=== PATIENT | female | born 1945 | race Caucasian/White ===

== ENCOUNTER 2023-11-13 22:48 | Inpatient (IN) | payer MEDICARE, BC ==
[~2023-11-13] VITALS: Ht 160 cm; Wt 70.3 kg
[2023-11-13 22:08] VITALS: BP 137/61; PULSE 77; RESP 18; TEMP 36.8072
[~2023-11-13 22:48] MED LIST: AMLO5TAB4 PO; ASPI-1406 PO; CLOP-31 PO; FENO145T25 PO; GABA-532 PO; LEVO50CA4; LOSA50TA41 PO
[2023-11-13] MEDS ORDERED: HYDRALAZINE HCL 25MG TABLET PO PRN (23:30)
[2023-11-14] MEDS: KETOROLAC 10MG TABLET PO PRN (00:26)
[2023-11-14] MEDS: ACETAMINOPHEN 325MG TABLET PO PRN (02:37)
[2023-11-14] MEDS: KETOROLAC 15MG/ML VIAL IV PRN (05:53)
[2023-11-14] MEDS: LEVOTHYROXINE SODIUM 50MCG TABLET PO SCH (06:08)
[2023-11-14 07:38] LABS: CHLORIDE 102 mEq/L (98-107); POTASSIUM 3.7 mEq/L (3.5-5.1); SODIUM 131 mEq/L (136-145)
[2023-11-14 07:39] LABS: CALCIUM 9.5 mg/dL (8.7-10.4); CARBON DIOXIDE 21 mEq/L (21-32)
[2023-11-14 07:44] LABS: CREATININE 0.8 mg/dL (0.6-1.0); GLUCOSE 97 mg/dL (70-105); UREA NITROGEN BLOOD 35 mg/dL (9-23)
[2023-11-14 07:46] LABS: ALANINE AMINOTRANSFERASE 58 IU/L (10-49); ALBUMIN 3.8 g/dL (3.2-4.8); ASPARTATE AMINOTRANSFERASE 89 IU/L (<34); BILIRUBIN TOTAL 1.1 mg/dL (0.1-1.0)
[2023-11-14 07:47] LABS: PROTEIN TOTAL 5.9 g/dL (6.0-8.3)
[2023-11-14 07:50] LABS: BASOPHILS % 1.5 % (0.0-2.0); EOSINOPHILS % 2.8 % (0.0-5.0); HEMATOCRIT. 37.8 % (36.0-48.0); HEMOGLOBIN. 12.8 g/dL (12.0-16.0); MEAN CORPUSCULAR HEMOGLOBIN 32.8 pg (28.0-32.0); MEAN CORPUSCULAR HGB CONC 33.9 g/dL (31.0-37.0); MEAN CORPUSCULAR VOLUME 96.7 fL (81.0-99.0); MEAN PLATELET VOLUME 9.9 fl (7.4-10.4); MONOCYTES % 14.1 % (2.0-8.0); NEUTROPHILS % 61.6 % (40.0-76.0); PLATELET 266 x1000/uL (130-400); RED BLOOD CELL COUNT 3.91 mill/uL (4.2-5.4); RED CELL DISTRIBUTION WIDTH 12.8 % (11.6-14.6); WHITE BLOOD COUNT 5.1 x1000/uL (4.5-11.0)
[2023-11-14 08:00] VITALS: BP 140/90; PULSE 80; RESP 18; TEMP 36.114; O2SAT 95
[2023-11-14] MEDS: ASPIRIN 81MG TABLET PO SCH (09:46)
[2023-11-14] MEDS: LOSARTAN 50 MG TABLET PO SCH (09:46)
[2023-11-14] MEDS: AMLODIPINE 5MG TABLET PO SCH (09:47)
[2023-11-14] MEDS: FENOFIBRATE NANOCRYSTALLIZED 145MG TABLET PO SCH (09:47)
[2023-11-14] MEDS: CLOPIDOGREL 75MG TABLET PO SCH (09:47)
[2023-11-14] MEDS: CIPROFLOXACIN 0.3% OPHTH SOLN 2.5ML BOTHEYE SCH (09:48)
[2023-11-14] MEDS: ENOXAPARIN 40MG/0.4ML SYR SUBCUT SCH (16:02)
[2023-11-14 20:00] VITALS: BP 124/55; PULSE 81; RESP 18; TEMP 36.55848; O2SAT 95
[2023-11-14] MEDS: MELATONIN 3MG TABLET PO SCH (20:57)
[2023-11-15 08:00] VITALS: BP 132/88; PULSE 81; RESP 18; TEMP 36.6696; O2SAT 98
[2023-11-15 20:00] VITALS: BP 126/53; PULSE 79; RESP 18; TEMP 36.28068; O2SAT 98
[2023-11-16] MEDS: KETOROLAC 15MG/ML VIAL IM NR (04:23)
[2023-11-16 08:00] VITALS: BP 152/69; PULSE 79; RESP 19; TEMP 36.44736; O2SAT 98
[2023-11-16] MEDS ORDERED: LOSARTAN 25 MG TABLET PO SCH (09:00)
[2023-11-16] MEDS: LOSARTAN 25 MG TABLET PO SCH (09:18)
[2023-11-16] MEDS: HYDROCODONE/ACETAMINOPHEN 5/325MG TABLET PO PRN (13:54)
[2023-11-16] MEDS: LIDOCAINE 5% PATCH TOP SCH (13:55)
[2023-11-16] MEDS ORDERED: NALOXONE HCL 0.4MG/ML VIAL IV PRN (14:30)
[2023-11-16 20:00] VITALS: BP 132/52; PULSE 78; RESP 18; TEMP 36.78072; O2SAT 98
[2023-11-17 08:00] VITALS: BP 138/65; PULSE 73; RESP 20; TEMP 36.61404; O2SAT 95
[2023-11-17] MEDS: TIZANIDINE HCL 2MG TABLET PO SCH (17:45)
[2023-11-17 20:00] VITALS: BP 99/61; PULSE 86; RESP 19; TEMP 36.16956; O2SAT 98
[2023-11-17 22:35] VITALS: BP 122/54; PULSE 72
[2023-11-18] MEDS: LACTULOSE 20G/30ML UDC PO NR (06:31)
[2023-11-18 08:00] VITALS: BP 122/52; PULSE 77; RESP 19; TEMP 37.11408; O2SAT 100
[2023-11-18 20:00] VITALS: BP 100/59; PULSE 86; RESP 18; TEMP 37.39188; O2SAT 92
[2023-11-18] MEDS: NA PHOS,M-B/NA PHOS,DI-BA ENEMA 118ML PR PRN (20:45)
[2023-11-19 07:42] LABS: BASOPHILS % 1.2 % (0.0-2.0); DIFFERENTIAL COMMENT 0; EOSINOPHILS % 2.1 % (0.0-5.0); HEMATOCRIT. 36.9 % (36.0-48.0); HEMOGLOBIN. 12.1 g/dL (12.0-16.0); LYMPHOCYTES % 18.4 % (20.0-50.0); MEAN CORPUSCULAR HEMOGLOBIN 32.1 pg (28.0-32.0); MEAN CORPUSCULAR HGB CONC 32.9 g/dL (31.0-37.0); MEAN CORPUSCULAR VOLUME 97.3 fL (81.0-99.0); MEAN PLATELET VOLUME 10.1 fl (7.4-10.4); MONOCYTES % 11.5 % (2.0-8.0); NEUTROPHILS % 66.8 % (40.0-76.0); PLATELET 330 x1000/uL (130-400); RED BLOOD CELL COUNT 3.79 mill/uL (4.2-5.4); RED CELL DISTRIBUTION WIDTH 12.6 % (11.6-14.6); WHITE BLOOD COUNT 6.6 x1000/uL (4.5-11.0)
[2023-11-19 07:46] LABS: CARBON DIOXIDE 19 mEq/L (21-32); CHLORIDE 102 mEq/L (98-107); POTASSIUM 4.2 mEq/L (3.5-5.1); SODIUM 128 mEq/L (136-145)
[2023-11-19 07:47] LABS: CALCIUM 9.4 mg/dL (8.7-10.4)
[2023-11-19 07:52] LABS: CREATININE 0.8 mg/dL (0.6-1.0); GLUCOSE 92 mg/dL (70-105); UREA NITROGEN BLOOD 27 mg/dL (9-23)
[2023-11-19 08:00] VITALS: BP 125/59; PULSE 77; RESP 18; TEMP 36.114; O2SAT 98
[2023-11-19 20:00] VITALS: BP 128/59; PULSE 79; RESP 18; TEMP 36.33624; O2SAT 97
[2023-11-20 08:00] VITALS: BP 142/60; PULSE 84; RESP 18; TEMP 36.22512; O2SAT 96
[2023-11-20 20:00] VITALS: BP 126/60; PULSE 80; RESP 18; TEMP 36.55848; O2SAT 94
[2023-11-20] MEDS: TIZANIDINE HCL 2MG TABLET PO SCH (21:23)
[2023-11-21 08:00] VITALS: BP 127/51; PULSE 70; RESP 18; TEMP 36.28068; O2SAT 97
[2023-11-21 20:00] VITALS: BP 126/57; PULSE 86; RESP 18; TEMP 36.22512; O2SAT 95
[2023-11-22 08:00] VITALS: BP 132/53; PULSE 71; RESP 17; TEMP 36.22512; O2SAT 98
[2023-11-22] MEDS ORDERED: NALOXONE HCL 0.4MG/ML VIAL IV PRN (09:30)
[2023-11-22 20:00] VITALS: BP 122/53; PULSE 89; RESP 17; TEMP 36.22512; O2SAT 96
[2023-11-22] MEDS: HYDROCODONE/ACETAMINOPHEN 5/325MG TABLET PO PRN (21:09)
[2023-11-23] MEDS: HYDROCODONE/ACETAMINOPHEN 5/325MG TABLET PO NR (04:00)
[2023-11-23] MEDS ORDERED: BACLOFEN 10MG TABLET PO NR (05:30)
[2023-11-23] MEDS: TIZANIDINE HCL 2MG TABLET PO NR (06:04)
[2023-11-23] MEDS: KETOROLAC 30MG/ML VIAL IV NR (06:31)
[2023-11-23] MEDS: KETOROLAC 30MG/ML VIAL IM NR (06:48)
[2023-11-23 07:45] LABS: BASOPHILS % 2.4 % (0.0-2.0); EOSINOPHILS % 1.6 % (0.0-5.0); HEMATOCRIT. 36.9 % (36.0-48.0); HEMOGLOBIN. 12.5 g/dL (12.0-16.0); LYMPHOCYTES % 25.4 % (20.0-50.0); MEAN CORPUSCULAR HEMOGLOBIN 32.6 pg (28.0-32.0); MEAN CORPUSCULAR HGB CONC 33.8 g/dL (31.0-37.0); MEAN CORPUSCULAR VOLUME 96.5 fL (81.0-99.0); MEAN PLATELET VOLUME 9.9 fl (7.4-10.4); MONOCYTES % 14.8 % (2.0-8.0); NEUTROPHILS % 55.8 % (40.0-76.0); PLATELET 408 x1000/uL (130-400); RED BLOOD CELL COUNT 3.82 mill/uL (4.2-5.4); RED CELL DISTRIBUTION WIDTH 12.5 % (11.6-14.6); WHITE BLOOD COUNT 4.9 x1000/uL (4.5-11.0)
[2023-11-23 07:58] LABS: CHLORIDE 100 mEq/L (98-107); POTASSIUM 3.6 mEq/L (3.5-5.1); SODIUM 130 mEq/L (136-145)
[2023-11-23 07:59] LABS: CALCIUM 10.1 mg/dL (8.7-10.4); CARBON DIOXIDE 21 mEq/L (21-32)
[2023-11-23 08:00] VITALS: BP 103/52; PULSE 66; RESP 19; TEMP 37.00296; O2SAT 98
[2023-11-23 08:04] LABS: CREATININE 0.7 mg/dL (0.6-1.0); GLUCOSE 89 mg/dL (70-105); UREA NITROGEN BLOOD 25 mg/dL (9-23)
[2023-11-23] MEDS ORDERED: LEVO50TA8 PO (12:41)
[2023-11-23 20:00] VITALS: BP 118/56; PULSE 85; RESP 17; TEMP 36.114; O2SAT 96
[2023-11-24 08:00] VITALS: BP 117/56; PULSE 71; RESP 18; TEMP 36.28068; O2SAT 100
[2023-11-24 20:00] VITALS: BP 143/56; PULSE 91; RESP 18; TEMP 35.78064; O2SAT 95
[2023-11-25] MEDS: LACTULOSE 20G/30ML UDC PO SCH (06:21)
[2023-11-25 08:00] VITALS: BP 123/55; PULSE 71; RESP 18; TEMP 36.44736; O2SAT 100
[2023-11-25] MEDS: MEGESTROL ACETATE 400 MG/10 ML UDC PO SCH (09:00)
[2023-11-25 15:03] LABS: CLARITY URINE CLEAR (CLEAR); COLOR URINE YELLOW (YELLOW); GLUCOSE URINE NEGATIVE (NEGATIVE); KETONES URINE NEGATIVE (NEGATIVE); LEUKOCYTE ESTERASE URINE NEGATIVE (NEGATIVE); NITRITE URINE NEGATIVE (NEGATIVE); OCCULT BLOOD URINE NEGATIVE (NEGATIVE); PROTEIN URINE NEGATIVE (NEGATIVE)
[2023-11-25 20:00] VITALS: BP 135/65; PULSE 90; RESP 18; TEMP 36.55848; O2SAT 96
[2023-11-25] MEDS: NA PHOS,M-B/NA PHOS,DI-BA ENEMA 118ML PR NR (20:00)
[2023-11-26 06:21] LABS: BASOPHILS % 2.1 % (0.0-2.0); CALCIUM 10.4 mg/dL (8.7-10.4); CARBON DIOXIDE 22 mEq/L (21-32); CHLORIDE 100 mEq/L (98-107); EOSINOPHILS % 2.3 % (0.0-5.0); HEMATOCRIT. 36.8 % (36.0-48.0); HEMOGLOBIN. 12.2 g/dL (12.0-16.0); MEAN CORPUSCULAR HGB CONC 33.2 g/dL (31.0-37.0); MEAN CORPUSCULAR VOLUME 96.5 fL (81.0-99.0); MEAN PLATELET VOLUME 9.5 fl (7.4-10.4); NEUTROPHILS % 59.6 % (40.0-76.0); PLATELET 382 x1000/uL (130-400); POTASSIUM 3.8 mEq/L (3.5-5.1); RED BLOOD CELL COUNT 3.81 mill/uL (4.2-5.4); RED CELL DISTRIBUTION WIDTH 12.8 % (11.6-14.6); SODIUM 130 mEq/L (136-145); WHITE BLOOD COUNT 6.1 x1000/uL (4.5-11.0)
[2023-11-26 06:27] LABS: CREATININE 0.7 mg/dL (0.6-1.0); GLUCOSE 97 mg/dL (70-105); UREA NITROGEN BLOOD 23 mg/dL (9-23)
[2023-11-26 08:00] VITALS: BP 160/68; PULSE 78; RESP 18; TEMP 36.28068; O2SAT 100
[2023-11-26 20:00] VITALS: BP 139/61; PULSE 88; RESP 18; TEMP 36.28068; O2SAT 97
[2023-11-27 08:00] VITALS: BP 147/67; PULSE 80; RESP 18; TEMP 36.22512; O2SAT 97
[2023-11-27] MEDS: HYDROCODONE/ACETAMINOPHEN 5/325MG TABLET PO PRN (13:36)
[2023-11-27] MEDS ORDERED: NALOXONE HCL 0.4MG/ML VIAL IV PRN (15:30)
[2023-11-27] MEDS: HYDROCODONE/ACETAMINOPHEN 5/325MG TABLET PO SCH (19:55)
[2023-11-27 20:00] VITALS: BP 136/59; PULSE 90; RESP 18; TEMP 36.114; O2SAT 97
[2023-11-28 08:00] VITALS: BP 140/63; PULSE 86; RESP 18; TEMP 36.3918; O2SAT 98
[2023-11-28] MEDS: HYDROCODONE/ACETAMINOPHEN 5/325MG TABLET PO SCH (12:53)
[2023-11-28 20:00] VITALS: BP 141/54; PULSE 69; RESP 19; TEMP 36.16956; O2SAT 95
[2023-11-29 06:14] LABS: BASOPHILS % 2.6 % (0.0-2.0); EOSINOPHILS % 2.5 % (0.0-5.0); HEMATOCRIT. 38.9 % (36.0-48.0); HEMOGLOBIN. 12.9 g/dL (12.0-16.0); LYMPHOCYTES % 33.5 % (20.0-50.0); MEAN CORPUSCULAR HEMOGLOBIN 31.8 pg (28.0-32.0); MEAN CORPUSCULAR HGB CONC 33.2 g/dL (31.0-37.0); MEAN CORPUSCULAR VOLUME 95.6 fL (81.0-99.0); MEAN PLATELET VOLUME 9.6 fl (7.4-10.4); MONOCYTES % 11.3 % (2.0-8.0); NEUTROPHILS % 50.1 % (40.0-76.0); PLATELET 380 x1000/uL (130-400); RED BLOOD CELL COUNT 4.07 mill/uL (4.2-5.4); RED CELL DISTRIBUTION WIDTH 12.7 % (11.6-14.6); WHITE BLOOD COUNT 5.1 x1000/uL (4.5-11.0)
[2023-11-29 06:21] LABS: CHLORIDE 100 mEq/L (98-107); POTASSIUM 3.9 mEq/L (3.5-5.1); SODIUM 128 mEq/L (136-145)
[2023-11-29 06:22] LABS: CALCIUM 10.4 mg/dL (8.7-10.4); CARBON DIOXIDE 21 mEq/L (21-32)
[2023-11-29 06:27] LABS: CREATININE 0.7 mg/dL (0.6-1.0); GLUCOSE 87 mg/dL (70-105); UREA NITROGEN BLOOD 20 mg/dL (9-23)
[2023-11-29] MEDS: HYDROCODONE/ACETAMINOPHEN 5/325MG TABLET PO ONE (06:27)
[2023-11-29 08:00] VITALS: BP 150/63; PULSE 79; RESP 17; TEMP 35.8362; O2SAT 98
[2023-11-30 08:00] VITALS: BP 108/68; PULSE 74; RESP 19; TEMP 36.83628; O2SAT 98
[2023-11-30] MEDS: HYDROCODONE/ACETAMINOPHEN 5/325MG TABLET PO PRN (09:37)
[2023-11-30 20:00] VITALS: BP 127/61; PULSE 92; RESP 18; TEMP 36.16956; O2SAT 98
[2023-12-01 08:00] VITALS: BP 137/60; PULSE 71; RESP 19; TEMP 36.78072; O2SAT 98
[2023-12-01 20:00] VITALS: BP 124/61; PULSE 86; RESP 17; TEMP 36.55848; O2SAT 99
[2023-12-02 08:00] VITALS: BP 123/63; PULSE 70; RESP 18; TEMP 36.50292; O2SAT 96
[2023-12-02 13:11] LABS: AMPHETAMINE SCREEN Negative ng/mL (Cutoff:50); BARBITURATE SCREEN Negative ug/mL (Cutoff:0.1); BENZODIAZEPINE SCREEN Negative ng/mL (Cutoff:20); CANNABINOID SCREEN Negative ng/mL (Cutoff:5); PHENCYCLIDINE SCREEN Negative ng/mL (Cutoff:8)
[2023-12-02 20:00] VITALS: BP 132/57; PULSE 89; RESP 18; TEMP 35.78064; O2SAT 98
[2023-12-03] MEDS: HYDROCODONE/ACETAMINOPHEN 5/325MG TABLET PO PRN ×2 (04:00→07:53)
[2023-12-03 07:12] LABS: CARBON DIOXIDE 21 mEq/L (21-32); CHLORIDE 104 mEq/L (98-107); POTASSIUM 3.9 mEq/L (3.5-5.1); SODIUM 132 mEq/L (136-145)
[2023-12-03 07:13] LABS: CALCIUM 10.9 mg/dL (8.7-10.4)
[2023-12-03 07:18] LABS: CREATININE 0.9 mg/dL (0.6-1.0); GLUCOSE 87 mg/dL (70-105); UREA NITROGEN BLOOD 21 mg/dL (9-23)
[2023-12-03] MEDS ORDERED: NALOXONE HCL 0.4MG/ML VIAL IV PRN (07:45)
[2023-12-03 08:00] VITALS: BP 152/65; PULSE 75; RESP 20; TEMP 36.28068; O2SAT 98
[2023-12-03 08:25] LABS: EOSINOPHILS % 2.6 % (0.0-5.0); HEMATOCRIT. 35.3 % (36.0-48.0); HEMOGLOBIN. 11.7 g/dL (12.0-16.0); LYMPHOCYTES % 24.7 % (20.0-50.0); MEAN CORPUSCULAR HEMOGLOBIN 32.4 pg (28.0-32.0); MEAN CORPUSCULAR VOLUME 98.1 fL (81.0-99.0); MONOCYTES % 11.7 % (2.0-8.0); PLATELET 274 x1000/uL (130-400); WHITE BLOOD COUNT 4.8 x1000/uL (4.5-11.0)
[2023-12-03 20:00] VITALS: BP 121/57; PULSE 89; RESP 18; TEMP 36.3918; O2SAT 96
[2023-12-04] MEDS: HYDROCODONE/ACETAMINOPHEN 5/325MG TABLET PO SCH (07:21)
[2023-12-04 08:00] VITALS: BP 144/63; PULSE 74; RESP 18; TEMP 36.89184; O2SAT 98
[2023-12-04 20:00] VITALS: BP 143/83; PULSE 76; RESP 18; TEMP 37.61412; O2SAT 96
[2023-12-05 07:59] VITALS: BP 138/59; PULSE 73; RESP 20; TEMP 36.3918; O2SAT 97
[2023-12-05 10:08] LABS: ETHANOL URINE Negative % (Cutoff=0.020)
[2023-12-05 20:00] VITALS: BP 137/80; PULSE 77; RESP 18; TEMP 36.50292; O2SAT 96
[2023-12-06 07:41] LABS: CHLORIDE 104 mEq/L (98-107); POTASSIUM 3.8 mEq/L (3.5-5.1); SODIUM 134 mEq/L (136-145)
[2023-12-06 07:42] LABS: CALCIUM 10.7 mg/dL (8.7-10.4); CARBON DIOXIDE 24 mEq/L (21-32)
[2023-12-06 07:47] LABS: CREATININE 0.9 mg/dL (0.6-1.0); GLUCOSE 82 mg/dL (70-105); UREA NITROGEN BLOOD 24 mg/dL (9-23)
[2023-12-06 07:50] LABS: BASOPHILS % 0.6 % (0.0-2.0); EOSINOPHILS % 2.2 % (0.0-5.0); HEMATOCRIT. 39.2 % (36.0-48.0); LYMPHOCYTES % 22.8 % (20.0-50.0); MEAN CORPUSCULAR HGB CONC 33.1 g/dL (31.0-37.0); MEAN CORPUSCULAR VOLUME 96.9 fL (81.0-99.0); MEAN PLATELET VOLUME 9.8 fl (7.4-10.4); MONOCYTES % 6.9 % (2.0-8.0); NEUTROPHILS % 67.5 % (40.0-76.0); PLATELET 296 x1000/uL (130-400); RED BLOOD CELL COUNT 4.05 mill/uL (4.2-5.4); RED CELL DISTRIBUTION WIDTH 12.9 % (11.6-14.6); WHITE BLOOD COUNT 6.2 x1000/uL (4.5-11.0)
[2023-12-06 08:00] VITALS: BP 100/70; PULSE 83; RESP 17; TEMP 36.3918; TEMP 36.39180; O2SAT 97
[2023-12-06 11:38] VITALS: BP 100/70; PULSE 83; TEMP 97.5; O2SAT 97
[2023-12-12 08:13] LABS: DIHYDROCODEINE UNCONJUGATED Negative (.); OPIATES SCREEN ++POSITIVE++ ng/mL (Cutoff:5); OXYCODON UNCONJUGATED Negative (.); OXYCODONE SCREEN Negative ng/mL (Cutoff:5); OXYCODONES CONFIRMATION Negative (.); OXYMORPHONE UNCONJUGATED Negative (.)
== END 2023-12-06 16:09 | disposition home health service (06) | DRG 65 ==
PROVIDERS: ADMIT Psychiatry & Neurology Neurology; ATTEND Hospitalist
DX: I63.29 Cerebral infarction due to unspecified occlusion or stenosis of other precerebral arteries (principal); E87.1 Hypo-osmolality and hyponatremia; I69.854 Hemiplegia and hemiparesis following other cerebrovascular disease affecting left non-dominant side; I45.2 Bifascicular block; M48.54XA Collapsed vertebra, not elsewhere classified, thoracic region, initial encounter for fracture; E03.9 Hypothyroidism, unspecified; E78.5 Hyperlipidemia, unspecified; F39 Unspecified mood [affective] disorder; F41.9 Anxiety disorder, unspecified; F51.04 Psychophysiologic insomnia; G62.9 Polyneuropathy, unspecified; M48.02 Spinal stenosis, cervical region; R29.6 Repeated falls; R29.810 Facial weakness; Z96.641 Presence of right artificial hip joint; I44.0 Atrioventricular block, first degree; M16.11 Unilateral primary osteoarthritis, right hip; M47.816 Spondylosis without myelopathy or radiculopathy, lumbar region; M54.16 Radiculopathy, lumbar region; G89.29 Other chronic pain; M50.31 Other cervical disc degeneration, high cervical region; M54.9 Dorsalgia, unspecified; M51.36 Other intervertebral disc degeneration, lumbar region; M25.552 Pain in left hip; R63.0 Anorexia; R47.1 Dysarthria and anarthria; I10 Essential (primary) hypertension; R32 Unspecified urinary incontinence; Z68.27 Body mass index [BMI] 27.0-27.9, adult
CPT/HCPCS: 36415; 72110; 73060; 73501; 80048; 80053; 80307; 80320; 81003; 85025; 92523; 92610; 97110; 97112; 97150; 97162; 97166; 97530; 97535; 97542; A4565; C1893; J1650; J1885